=== PATIENT | male | born 1975 | race Caucasian/White ===

== ENCOUNTER 2016-12-29 16:31 | Emergency (ER) | payer MEDICARE, OTHER ==
[~2016-12-29 16:31] MED LIST: APRISO0.375 GM PO; AURYXIA210 MG PO; BUSPAR 10MG10 MG PO; CARVEDILOL25 MG PO; CLONIDINE HCL0.3 MG PO; DILTIAZEM ER360 MG PO; GLIMEPIRIDE4 MG PO; HYDRALAZINE HC100 MG PO; LASIX80 MG PO; LEXAPRO5 MG PO; LIPITOR TAB 2020 MG PO; MIRALAX17 GM PO; NORVASC 5 MG TAB5 MG PO; OMEPRAZOLE40 MG PO; PHOSLO 667 MG667 MG PO
== END 2016-12-29 19:10 | disposition home or self-care (01) ==
LOC: ER1 16:31
DX: S00.03XA Contusion of scalp, initial encounter (principal); S59.902A Unspecified injury of left elbow, initial encounter; S19.9XXA Unspecified injury of neck, initial encounter; N18.9 Chronic kidney disease, unspecified; W18.30XA Fall on same level, unspecified, initial encounter; Z91.041 Radiographic dye allergy status
CPT/HCPCS: 70450; 72125; 73080; 99284

== ENCOUNTER 2017-04-25 00:01 | Emergency (ER) | payer MEDICARE, OTHER ==
[2017-04-25 01:19] LABS: RED BLOOD COUNT 3.15 M/UL (4.20-5.50); WHITE BLOOD COUNT 13.3 K/UL (4.5-11.0)
== END 2017-04-25 07:50 | disposition short-term general hospital (02) ==
LOC: ER1 00:01
PROVIDERS: Physician Assistant
DX: K65.1 Peritoneal abscess (principal); I12.0 Hypertensive chronic kidney disease with stage 5 chronic kidney disease or end stage renal disease; E11.22 Type 2 diabetes mellitus with diabetic chronic kidney disease; N18.6 End stage renal disease; G47.33 Obstructive sleep apnea (adult) (pediatric); Z91.041 Radiographic dye allergy status; Z99.2 Dependence on renal dialysis
CPT/HCPCS: 36415; 71010; 80053; 82150; 83605; 83690; 85025; 86140; 87040; 96374; 96375; 99285; J1335; J2543

== ENCOUNTER 2020-08-25 12:08 | Inpatient (IN) | payer MEDICARE, OTHER ==
[~2020-08-25] VITALS: Ht 190.5 cm; Wt 124.7 kg
[2020-08-25 12:44] LABS: HEMOGLOBIN 7.8 gm/dl (14.0-17.5); RED BLOOD COUNT 2.74 M/UL (4.20-5.50); WHITE BLOOD COUNT 7.9 K/UL (4.5-11.0)
[2020-08-25 13:04] LABS: BUN/CREATININE RATIO 7 (0-10)
[2020-08-26 05:35] LABS: HEMOGLOBIN 8.9 gm/dl (14.0-17.5)
[2020-08-26 05:49] LABS: RED BLOOD COUNT 3.15 M/UL (4.20-5.50); WHITE BLOOD COUNT 10.5 K/UL (4.5-11.0)
[2020-08-26] MEDS ORDERED: LEXAPRO5 MG PO (11:23)
[2020-08-26] MEDS ORDERED: BUSPAR 10MG10 MG PO (11:24)
[2020-08-26] MEDS ORDERED: APRISO0.375 GM PO (11:24)
[2020-08-26] MEDS ORDERED: TRESIBA FL100 UNIT/1 SC (11:25)
[2020-08-26] MEDS ORDERED: ULTRAM50 MG PO (11:25)
[2020-08-26] MEDS ORDERED: VICTOZA 1818 MG/3 ML SC (11:25)
[2020-08-26] MEDS ORDERED: COREG25 MG PO (11:25)
[2020-08-26] MEDS ORDERED: OMEPRAZOLE20 MG PO (11:26)
[2020-08-26] MEDS ORDERED: LASIX80 MG PO (11:26)
[2020-08-26] MEDS ORDERED: LIPITOR40 MG PO (11:26)
[2020-08-26] MEDS ORDERED: NORVASC5 MG PO (11:26)
[2020-08-26] MEDS ORDERED: HYDRALAZINE HCL25 MG PO (11:27)
[2020-08-26] MEDS ORDERED: PHOSLO 667 MG667 MG PO ×2 (11:27→11:28)
[2020-08-26] MEDS ORDERED: VITAMIN D325 MCG PO (11:28)
[2020-08-26] MEDS ORDERED: VITAMIN C500 M4 PO (11:29)
[2020-08-26] MEDS ORDERED: CALTRATE 600MG600 MG PO (11:29)
[2020-08-26] MEDS ORDERED: FERROUS SULFAT325 MG PO (11:29)
[2020-08-26] MEDS ORDERED: CATAPRES0.3 MG PO (11:30)
[2020-08-27 05:34] LABS: HEMOGLOBIN 7.7 gm/dl (14.0-17.5); WHITE BLOOD COUNT 10.7 K/UL (4.5-11.0)
[2020-08-27 05:39] LABS: RED BLOOD COUNT 2.72 M/UL (4.20-5.50)
[2020-08-28 05:57] LABS: HEMOGLOBIN 8.3 gm/dl (14.0-17.5); RED BLOOD COUNT 2.9 M/UL (4.20-5.50); WHITE BLOOD COUNT 9.4 K/UL (4.5-11.0)
[2020-08-29 06:01] LABS: HEMOGLOBIN 8.4 gm/dl (14.0-17.5); RED BLOOD COUNT 2.91 M/UL (4.20-5.50); WHITE BLOOD COUNT 7.4 K/UL (4.5-11.0)
[2020-08-30 06:49] LABS: HEMOGLOBIN 7.8 gm/dl (14.0-17.5); RED BLOOD COUNT 2.72 M/UL (4.20-5.50); WHITE BLOOD COUNT 7.1 K/UL (4.5-11.0)
[2020-08-30] MEDS ORDERED: DECADRON6 MG PO (15:14)
== END 2020-08-30 16:33 | disposition home or self-care (01) | DRG 177 ==
LOC: ER1 12:08 → CCU 13:32 → CDU 13:32 → M/S 13:32 → CCU 08-26 17:32 → M/S 08-29 18:54
PROVIDERS: Emergency Medicine; Internal Medicine; Internal Medicine Nephrology; Physician Assistant; ADMIT Internal Medicine
PROC: 8E0ZXY6 Isolation (ICD-10-PCS; 2020-08-25)
PROC: 5A09357 Assistance with Respiratory Ventilation, Less than 24 Consecutive Hours, Continuous Positive Airway Pressure (ICD-10-PCS; principal; 2020-08-26)
PROC: XW13325 Transfusion of Convalescent Plasma (Nonautologous) into Peripheral Vein, Percutaneous Approach, New Technology Group 5 (ICD-10-PCS; 2020-08-26)
PROC: 5A1D70Z Performance of Urinary Filtration, Intermittent, Less than 6 Hours Per Day (ICD-10-PCS; 2020-08-26)
PROC: 5A1D70Z Performance of Urinary Filtration, Intermittent, Less than 6 Hours Per Day (ICD-10-PCS; 2020-08-28)
PROC: 5A1D70Z Performance of Urinary Filtration, Intermittent, Less than 6 Hours Per Day (ICD-10-PCS; 2020-08-30)
DX: U07.1 COVID-19 (principal); J12.82 Pneumonia due to coronavirus disease 2019; J80 Acute respiratory distress syndrome; N18.6 End stage renal disease; I12.0 Hypertensive chronic kidney disease with stage 5 chronic kidney disease or end stage renal disease; E11.22 Type 2 diabetes mellitus with diabetic chronic kidney disease; G47.33 Obstructive sleep apnea (adult) (pediatric); F32.9 Major depressive disorder, single episode, unspecified; D63.1 Anemia in chronic kidney disease; E66.01 Morbid (severe) obesity due to excess calories; F41.9 Anxiety disorder, unspecified; E78.5 Hyperlipidemia, unspecified; Z82.49 Family history of ischemic heart disease and other diseases of the circulatory system; Z99.2 Dependence on renal dialysis; Z83.3 Family history of diabetes mellitus; Z83.2 Family history of diseases of the blood and blood-forming organs and certain disorders involving the immune mechanism; Z91.041 Radiographic dye allergy status; Z79.4 Long term (current) use of insulin; Z79.899 Other long term (current) drug therapy; Z68.34 Body mass index [BMI] 34.0-34.9, adult
CPT/HCPCS: 36415; 36600; 71045; 80048; 80053; 82550; 82553; 82803; 82962; 83605; 83735; 83880; 84484; 85007; 85025; 85027; 86900; 86901; 86927; 87040; 90935; 90937; 93005; 94660; 94760; 96365; 96375; 99285; J0692; J0696; J1100; J1644; J2405; J2550; J7030; J7040; J7050; Q5105; U0002

== ENCOUNTER → 2020-10-11 | Outpatient (CLI) | payer MEDICARE, OTHER ==
[~2020-10-11] MED LIST changes: +CALTRATE 600MG600 MG PO; +CATAPRES0.3 MG PO; +COREG25 MG PO; +DECADRON6 MG PO; +FERROUS SULFAT325 MG PO; +HYDRALAZINE HCL25 MG PO; +LIPITOR40 MG PO; +NORVASC5 MG PO; +OMEPRAZOLE20 MG PO; +TRESIBA FL100 UNIT/1 SC; +ULTRAM50 MG PO; +VICTOZA 1818 MG/3 ML SC; +VITAMIN C500 M4 PO; +VITAMIN D325 MCG PO
[2020-10-11 10:32] LABS: HEMOGLOBIN 8.9 gm/dl (14.0-17.5); RED BLOOD COUNT 3.16 M/UL (4.20-5.50); WHITE BLOOD COUNT 7.9 K/UL (4.5-11.0)
== END ==
LOC: US 10-04 09:30
PROVIDERS: Nurse Practitioner Family
DX: R74.8 Abnormal levels of other serum enzymes (principal); R06.02 Shortness of breath; K76.0 Fatty (change of) liver, not elsewhere classified; R93.7 Abnormal findings on diagnostic imaging of other parts of musculoskeletal system
CPT/HCPCS: 36415; 71046; 76705; 85027

== ENCOUNTER → 2020-11-04 | Outpatient (CLI) | payer MEDICARE, OTHER | LOC: ECHO 11:00 | DX: M89.9 Disorder of bone, unspecified (principal); N18.6 End stage renal disease; I51.89 Other ill-defined heart diseases; I51.7 Cardiomegaly | CPT/HCPCS: ECHO; 73060; 93306 ==

== ENCOUNTER → 2021-02-07 | Outpatient (CLI) | payer MEDICARE, OTHER | LOC: NM 12-27 09:10 | DX: M89.9 Disorder of bone, unspecified (principal) | CPT/HCPCS: 78306; A9503 ==

== ENCOUNTER 2021-04-22 16:12 | Emergency (ER) | payer MEDICARE, OTHER ==
[2021-04-22 17:26] LABS: RED BLOOD COUNT 2.49 M/UL (4.20-5.50); WHITE BLOOD COUNT 7.7 K/UL (4.5-11.0)
[2021-04-22 17:50] LABS: BUN/CREATININE RATIO 6 (0-10)
== END 2021-04-22 19:38 | disposition home or self-care (01) ==
LOC: ER1 16:12
PROVIDERS: Nurse Practitioner
DX: I12.0 Hypertensive chronic kidney disease with stage 5 chronic kidney disease or end stage renal disease (principal); E11.22 Type 2 diabetes mellitus with diabetic chronic kidney disease; N18.6 End stage renal disease; Z99.2 Dependence on renal dialysis; E78.5 Hyperlipidemia, unspecified; Z91.041 Radiographic dye allergy status
CPT/HCPCS: 71045; 80053; 82550; 82553; 83874; 84484; 85025; 93005; 99285

== ENCOUNTER → 2021-04-30 | Outpatient (CLI) | payer MEDICARE, OTHER ==
[2021-04-30 14:47] LABS: HEMOGLOBIN 9.6 gm/dl (14.0-17.5); RED BLOOD COUNT 3.03 M/UL (4.20-5.50); WHITE BLOOD COUNT 7.9 K/UL (4.5-11.0)
== END ==
LOC: LAB 13:43
DX: R94.39 Abnormal result of other cardiovascular function study (principal)
CPT/HCPCS: 36415; 80069; 85027; 85610

== ENCOUNTER → 2021-05-05 | Outpatient (CLI) | payer MEDICARE, OTHER | LOC: MRI 04-09 13:00 | DX: M89.9 Disorder of bone, unspecified (principal); N18.6 End stage renal disease | CPT/HCPCS: 73218 ==

== ENCOUNTER 2021-05-15 17:08 | Emergency (ER) | payer MEDICARE, OTHER | END 2021-05-15 19:46 | disposition home or self-care (01) | LOC: ER1 17:08 | DX: R21 Rash and other nonspecific skin eruption (principal); T50.8X5A Adverse effect of diagnostic agents, initial encounter | CPT/HCPCS: 96374; 99282; J1100 ==

== ENCOUNTER → 2021-08-24 | Outpatient (CLI) | payer MEDICARE, OTHER ==
[2021-08-24 13:03] LABS: HEMOGLOBIN 7.5 gm/dl (14.0-17.5)
== END ==
LOC: LAB 12:38
PROVIDERS: Internal Medicine Nephrology
DX: D50.8 Other iron deficiency anemias (principal); D63.1 Anemia in chronic kidney disease
CPT/HCPCS: 36415; 85014; 85018; 86850; 86900; 86901; 86920; P9016

== ENCOUNTER → 2021-08-25 | Outpatient (CLI) | payer MEDICARE, OTHER | LOC: OPSV 09:00 | DX: D63.1 Anemia in chronic kidney disease (principal); D50.8 Other iron deficiency anemias | CPT/HCPCS: 36430; J7050 ==

== ENCOUNTER 2021-09-17 16:22 | Emergency (ER) | payer MEDICARE, OTHER ==
[2021-09-17 17:16] LABS: RED BLOOD COUNT 2.01 M/UL (4.20-5.50); WHITE BLOOD COUNT 9.7 K/UL (4.5-11.0)
[2021-09-17 17:19] LABS: HEMOGLOBIN 6.7 gm/dl (14.0-17.5)
[2021-09-17 17:43] LABS: BUN/CREATININE RATIO 7 (0-10)
== END 2021-09-17 22:31 | disposition home or self-care (01) ==
LOC: ER1 16:22
PROVIDERS: Nurse Practitioner
DX: D64.9 Anemia, unspecified (principal); I12.0 Hypertensive chronic kidney disease with stage 5 chronic kidney disease or end stage renal disease; E11.22 Type 2 diabetes mellitus with diabetic chronic kidney disease; N18.6 End stage renal disease; Z79.82 Long term (current) use of aspirin; Z88.8 Allergy status to other drugs, medicaments and biological substances
CPT/HCPCS: 36430; 71045; 80053; 82550; 82553; 82607; 82962; 83540; 83550; 83874; 84484; 85025; 86850; 86900; 86901; 86920; 94640; 94664; 99285; P9016

== ENCOUNTER → 2021-10-01 | Outpatient (CLI) | payer MEDICARE, OTHER | LOC: ECHO 10:19 | DX: I11.0 Hypertensive heart disease with heart failure (principal); I50.20 Unspecified systolic (congestive) heart failure; I07.1 Rheumatic tricuspid insufficiency | CPT/HCPCS: ECHO; 93306 ==

== ENCOUNTER → 2021-12-23 | Outpatient (CLI) | payer MEDICARE, OTHER ==
[2021-12-23 11:11] LABS: HEMOGLOBIN 10.3 gm/dl (14.0-17.5); RED BLOOD COUNT 3.5 M/UL (4.20-5.50); WHITE BLOOD COUNT 9.2 K/UL (4.5-11.0)
[2021-12-23 11:45] LABS: BUN/CREATININE RATIO 18 (0-10)
== END ==
LOC: LAB 10:46
PROVIDERS: Internal Medicine Nephrology
DX: D64.9 Anemia, unspecified (principal); Z94.0 Kidney transplant status; R39.9 Unspecified symptoms and signs involving the genitourinary system; R79.89 Other specified abnormal findings of blood chemistry
CPT/HCPCS: 36415; 80069; 82570; 83735; 84156; 85025; 87086